=== PATIENT | female | born 1995 | race Caucasian/White ===

== ENCOUNTER 2017-01-05 11:23 | Emergency (ER) | payer BC ==
[2017-01-05 11:37] VITALS: BP 124/70; PULSE 83; RESP 20; TEMP 98.2
--- NOTE | 2017-01-05 12:24 | ED ---
Skin/Abscess/FB HPI - General Chief complaint: Skin/Abscess/Foreign Body Stated complaint: Vaginal Cyst Time Seen by Provider: 01/05/17 11:48 Source: patient Mode of arrival: ambulatory Limitations: no limitations - History of Present Illness Initial comments: 21-year-old female patient presents to emergency department today for evaluation of a abscess to her left labia. Patient states that the area started as what she believes was an ingrown hair about a week ago, and since has been progressively more painful and increasing in size since then. Patient does admit to shaving the area. Patient denies any fever, chills, dysuria, hematuria, urinary urgency, urinary frequency, abdominal pain, back pain, nausea , vomiting, constipation, or diarrhea. Patient denies history of abscess or MRSA. - Related Data Previous Rx's Medication Instructions Recorded Hydrocodone/Acetaminophen [[place] 1 tab PO Q6HR PRN #15 tab 01/05/17 5-325] Sulfamethox-Tmp 800-160Mg [Bactrim 1 each PO Q12HR #20 tab 01/05/17 Ds] Allergies Allergy/AdvReac Type Severity Reaction Status Date / Time No Known Allergies Allergy Verified 01/05/17 11:37 Review of Systems ROS Statement: Those systems with pertinent positive or pertinent negative responses have been documented in the HPI. ROS Other: All systems not noted in ROS Statement are negative. Past Medical History Past Medical History: No Reported History History of Any Multi-Drug Resistant Organisms: None Reported Additional Past Surgical History / Comment(s): wisdom teeth Past Psychological History: No Psychological Hx Reported Smoking Status: Never smoker Past Alcohol Use History: Occasional Past Drug Use History: None Reported General Exam Limitations: no limitations General appearance: alert, in no apparent distress Eye exam: Present: normal appearance, PERRL, EOMI. Absent: scleral icterus, conjunctival injection, periorbital swelling ENT exam: Present: normal exam, normal oropharynx, mucous membranes moist Neck exam: Present: normal inspection. Absent: tenderness, meningismus, lymphadenopathy Respiratory exam: Present: normal lung sounds bilaterally. Absent: respiratory distress, wheezes, rales, rhonchi, stridor Cardiovascular Exam: Present: regular rate, normal rhythm, normal heart sounds. Absent: systolic murmur, diastolic murmur, rubs, gallop, clicks GI/Abdominal exam: Present: soft, normal bowel sounds. Absent: distended, tenderness, guarding, rebound, rigid External exam: Present: erythema (Left labia), swelling, other ( 2 cm x 2 cm abscess noted to the labia, area is fluctuant). Absent: lacerations, ecchymosis Course Vital Signs 01/05/17 11:35 Temperature 98.2 F Pulse Rate 83 Respiratory 20 Rate Blood Pressure 124/70 O2 Sat by Pulse 99 Oximetry Procedures - Incision & Drainage Consent Obtained: verbal consent Time Out Performed?: Yes Site: vulva/vagina Size (cm): 2 Anesthetic Used: lidocaine 1% Amount (mLs): 4 I&D Cleaning Method: Betadine Sterile Field Used?: Yes Scalpel Used: #11 I&D Drainage Obtained: Pus, Blood Culture Obtained?: Yes Patient Tolerated Procedure: well, no complications Medical Decision Making - Medical Decision Making 21-year-old female patient presented for evaluation and treatment of abscess to her left labia. I&D was performed in emergency department of the abscess, patient did have output of purulent drainage. Culture was obtained and sent to lab. She'll be discharged home and pain medication as well as started on Bactrim due to surrounding erythema. Patient educated regarding warm compresses and sitz baths for this. Patient injected a pop with primary care physician for recheck in one to 2 days. Patient instructed to return for any new, worsening, or concerning symptoms. Disposition Clinical Impression: Labial abscess Disposition: HOME SELF-CARE Condition: Stable Instructions: Abscess Incision and Drainage (ED) Additional Instructions: Warm compresses, sitz baths at least 4 times a day for 20 minutes at a time. Take pain medication as needed for discomfort. Follow up with primary Physician in one to 2 days for recheck. Return for any worsening, new, or concerning symptoms. Prescriptions: Hydrocodone/Acetaminophen [[place] 5-325] 1 tab PO Q6HR PRN #15 tab PRN Reason: Pain Sulfamethox-Tmp 800-160Mg [Bactrim Ds] 1 each PO Q12HR #20 tab Referrals: Radha Lacy MD [Primary Care Provider] - 1-2 days Time of Disposition: 12:24
== END 2017-01-05 12:53 | disposition home or self-care (01) ==
LOC: EC 11:23
DX: N76.4 Abscess of vulva (principal)
CPT/HCPCS: 56405; 87070; 87205; 99283

== ENCOUNTER 2019-10-24 02:37 | Emergency (ER) | payer BC, OTHER ==
[2019-10-24] MEDS ORDERED: ACETAMINOPHEN TAB 325 MG TAB PO STA (03:11)
--- NOTE | 2019-10-24 03:17 | XR ---
EXAMINATION TYPE: XR chest 2V DATE OF EXAM: 10/24/2019 COMPARISON: NONE HISTORY: Cough TECHNIQUE: FINDINGS: Heart and mediastinum are normal. Lungs are clear. Diaphragm is normal. Bony thorax appears normal. IMPRESSION: Normal chest
[2019-10-24] MEDS ORDERED: IBUPROFEN 600 MG TAB PO STA (03:22)
[2019-10-24] MEDS ORDERED: OSELTAMIVIR 75 MG CAP PO STA (03:37)
[2019-10-24 03:39] VITALS: BP 105/71; RESP 18
--- NOTE | 2019-10-24 03:44 | ED ---
General Adult HPI - General Chief complaint: ENT Stated complaint: fever,sore throat Time Seen by Provider: 10/24/19 02:59 Source: patient, RN notes reviewed, old records reviewed Mode of arrival: ambulatory Limitations: no limitations - History of Present Illness Initial comments: 24-year-old female patient no pertinent past medical history presents to ED for chief complaint of 2 days of fever, body aches, nausea without emesis, otalgia, sore throat, cough. Denies any chance of being . Denies sick contacts. Denies any abdominal pain. Denies any difficulty breathing. Denies any other complaints. Systemic: Pt denies fatigue, rash. Pt denies weakness, night sweats, weight loss. Neuro: Pt denies headache, visual disturbances, syncope or pre-syncope. HEENT: Pt denies ocular discharge or irritation, otalgia, rhinorrhea, pharyngitis or notable lymphadenopathy. Cardiopulmonary: Pt denies chest pain, SOB, heart palpitations, dyspnea on exertion. Abdominal/GI: Pt denies abdominal pain, n/v/d. : Pt denies dysuria, burning w/ urination, frequency/urgency. Denies new onset urinary or bowel incontinence. MSK: Pt denies loss of strength or function in extremities. Neuro: Pt denies new onset weakness, paresthesias. - Related Data Previous Rx's Medication Instructions Recorded Hydrocodone/Acetaminophen [[place] 1 tab PO Q6HR PRN #15 tab 01/05/17 5-325] Sulfamethox-Tmp 800-160Mg [Bactrim 1 each PO Q12HR #20 tab 01/05/17 Ds] Oseltamivir [Tamiflu] 75 mg PO Q12HR 5 Days cap 10/24/19 Allergies Allergy/AdvReac Type Severity Reaction Status Date / Time No Known Allergies Allergy Verified 01/05/17 11:37 Review of Systems ROS Statement: Those systems with pertinent positive or pertinent negative responses have been documented in the HPI. ROS Other: All systems not noted in ROS Statement are negative. Past Medical History Past Medical History: No Reported History History of Any Multi-Drug Resistant Organisms: None Reported Additional Past Surgical History / Comment(s): wisdom teeth Past Psychological History: No Psychological Hx Reported Smoking Status: Never smoker Past Alcohol Use History: Occasional Past Drug Use History: None Reported General Exam - General Exam Comments Initial Comments: Constitutional: NAD, AOX3, Pt has pleasant affect. HEENT: NC/AT, trachea midline, neck supple, no lymphadenopathy. Posterior pharynx non erythematous, without exudates. External ears appear normal, without discharge. TMs pale cordero bilaterally. Mucous membranes moist. Eyes PERRLA, EOM intact. There is no scleral icterus. No pallor noted. Cardiopulmonary: RRR, no murmurs, rubs or gallops, no JVD noted. Lungs CTAB in anterior and posterior browne. No peripheral edema. Abdominal exam: Abdomen soft and non-distended. Abdomen non-tender to palpation in all 4 quadrants. Bowel sounds active in LLQ. No hepatosplenomegaly. No ecchymosis Neuro: CN II-XII grossly intact. No nuchal rigidity. No raccon eyes, no mar sign, no hemotympanum. No cervical spinal tenderness. Kernig's and Brudzinski's negative. MSK: No posterior calf tenderness bilaterally, homans sign negative bilaterally. Posterior tibialis and radial pulse +2 bilaterally. Sensation intact in upper and lower extremities. Full active ROM in upper and lower extremities, 5/5 stregnth. Limitations: no limitations Course Vital Signs 10/24/19 10/24/19 02:49 03:38 Temperature 101 F H 101.9 F H Pulse Rate 130 H 119 H Respiratory 16 18 Rate Blood Pressure 141/82 105/71 O2 Sat by Pulse 97 97 Oximetry Medical Decision Making - Medical Decision Making 24-year-old female patient no pertinent past medical history presents to ED for chief complaint of 2 days of fever, body aches, nausea without emesis, otalgia, sore throat, cough. Denies any chance of being . Denies sick contacts. Denies any abdominal pain. Denies any difficulty breathing. Denies any other complaints. Pt vital signs displayed fever, patient administered antipyretic. Physical exam did not display acute pathology. Laboratory investigations revealed positive influenza B. Patient initiated on Tamiflu. We'll discharge the primary care provider follow-up tomorrow and return precautions. Case discussed with Dr. Tlelo. - Lab Data Lab Results 10/24/19 10/24/19 Range/Units 03:00 03:00 Influenza Type A RNA Not Detected (Not Detectd) Influenza Type B (PCR) Detected H (Not Detectd) Group A Strep Rapid Negative (Negative) Disposition Clinical Impression: Influenza B Disposition: HOME SELF-CARE Condition: Stable Instructions (If sedation given, give patient instructions): Influenza (ED) Additional Instructions: Take medication as directed. Use Tylenol and Motrin as needed for fever. Follow up with primary care provider tomorrow. Return to ER if condition worsens. Prescriptions: Oseltamivir [Tamiflu] 75 mg PO Q12HR 5 Days cap Is patient prescribed a controlled substance at d/c from ED?: No Referrals: Radha Lacy MD [Primary Care Provider] - 1-2 days
[2019-10-24 03:59] VITALS: PULSE 110; TEMP 99.5
== END 2019-10-24 03:59 | disposition home or self-care (01) ==
LOC: EC 02:37
DX: J10.1 Influenza due to other identified influenza virus with other respiratory manifestations (principal)
CPT/HCPCS: 71046; 87081; 87430; 87502; 99284

== ENCOUNTER 2020-08-11 22:13 | Emergency (ER) | payer OTHER ==
[2020-08-11 22:22] VITALS: RESP 18
--- NOTE | 2020-08-11 22:45 | ED ---
Female Urogenital HPI - General Chief complaint: Vaginal Bleeding Stated complaint: abnormal bleeding Time Seen by Provider: 08/11/20 22:22 Source: patient Mode of arrival: ambulatory Limitations: no limitations - History of Present Illness Initial comments: 25 year-old female patient presents to the emergency department today for evaluation of vaginal bleeding. Patient states that she has had increased vaginal bleeding over the last 2 days. States her normal period was 07/27/2020. States that she generally has very regular periods and never has had bleeding between. She is not taking nor has she started and stopped a control. States that her last period seemed to be of normal heaviness and duration. Patient states that she has not had to wear a pad or tampon, but did bleed through her underwear at one point. She states she is having mild abdominal cramping. Denies any back pain. Does admit to having unprotected sex. Is concerned about STIs but denies any abnormal vaginal discharge, odor, or itching. Denies any dysuria, hematuria, urinary urgency, urinary frequency. She did see her physician for this yesterday was given Bactrim for possible urinary tract infection with no other testing. Patient denies any recent rash, fever, chills, cough, shortness of breath, chest pain, nausea, vomiting, diarrhea, constipation, back pain, numbness, tingling, dizziness, weakness, headache, visual changes, or any other complaints. - Related Data Previous Rx's Medication Instructions Recorded Hydrocodone/Acetaminophen [[place] 1 tab PO Q6HR PRN #15 tab 01/05/17 5-325] Sulfamethox-Tmp 800-160Mg [Bactrim 1 each PO Q12HR #20 tab 01/05/17 Ds] Oseltamivir [Tamiflu] 75 mg PO Q12HR 5 Days cap 10/24/19 Allergies Allergy/AdvReac Type Severity Reaction Status Date / Time No Known Allergies Allergy Verified 08/11/20 22:21 Review of Systems ROS Statement: Those systems with pertinent positive or pertinent negative responses have been documented in the HPI. ROS Other: All systems not noted in ROS Statement are negative. Past Medical History Past Medical History: No Reported History History of Any Multi-Drug Resistant Organisms: None Reported Additional Past Surgical History / Comment(s): wisdom teeth Past Psychological History: No Psychological Hx Reported Smoking Status: Never smoker Past Alcohol Use History: Occasional Past Drug Use History: None Reported General Exam Limitations: no limitations General appearance: alert, in no apparent distress, other (This is a well- developed, well-nourished adult female patient in no acute distress. Vital signs upon presentation are temperature 98.0F, pulse 103, respirations 18, blood pressure 115/74, pulse ox 99% on room air.) Eye exam: Present: normal appearance, PERRL, EOMI. Absent: scleral icterus, conjunctival injection, periorbital swelling ENT exam: Present: normal exam, normal oropharynx, mucous membranes moist Respiratory exam: Present: normal lung sounds bilaterally. Absent: respiratory distress, wheezes, rales, rhonchi, stridor Cardiovascular Exam: Present: regular rate, normal rhythm, normal heart sounds. Absent: systolic murmur, diastolic murmur, rubs, gallop, clicks GI/Abdominal exam: Present: soft, normal bowel sounds. Absent: distended, tenderness, guarding, rebound, rigid External exam: Present: normal external exam Speculum exam: Present: vaginal bleeding (Scant). Absent: cervical discharge By manual exam: Present: normal by manual exam, adnexal tenderness (Mild left). Absent: cervical motion tenderness Neurological exam: Present: alert, oriented X3, CN II-XII intact Psychiatric exam: Present: normal affect, normal mood Skin exam: Present: warm, dry, intact, normal color. Absent: rash Course Vital Signs 08/11/20 22:18 Temperature 98 F Pulse Rate 103 H Respiratory 18 Rate Blood Pressure 115/74 O2 Sat by Pulse 99 Oximetry Medical Decision Making - Medical Decision Making 25-year-old female patient presented to the emergency department today for evaluation of vaginal bleeding that started 2 days ago. Patient's normal period was 2 weeks ago. Physical examination revealed a soft nontender abdomen. Patient denies having significant pain with this. Vaginal exam was obtained and showed very scant vaginal bleeding. No cervical erythema or friability. No abnormal lesions. Bimanual exam was normal with some very mild left adnexal tenderness. HCG was negative. Patient did request STD testing. Swabs were sent to the lab. We will discharge at this time to await culture results. She is instructed to follow-up with her primary care physician for recheck in 1-2 days. Return parameters were discussed in detail. She verbalizes understanding and agrees with this plan. - Lab Data Lab Results 08/11/20 Range/Units 22:54 Urine HCG, Qual Not Detected (Not Detectd) Disposition Clinical Impression: Dysfunctional uterine bleeding Disposition: HOME SELF-CARE Condition: Good Instructions (If sedation given, give patient instructions): Dysfunctional Uterine Bleeding (ED) Additional Instructions: Await culture results. Follow up with women's studies lecturer for further evaluation as soon as possible. Return to the emergency department for any new, worsening, or concerning symptoms. Is patient prescribed a controlled substance at d/c from ED?: No Referrals: Concepción Khoury DO [Doctor of Osteopathic Medicine] - 1-2 days Time of Disposition: 23:24
[2020-08-11 23:35] VITALS: BP 104/64; PULSE 77; TEMP 98.6
== END 2020-08-11 23:37 | disposition home or self-care (01) ==
LOC: EC 22:13
DX: N93.8 Other specified abnormal uterine and vaginal bleeding (principal); R10.9 Unspecified abdominal pain; Z32.02 Encounter for pregnancy test, result negative
CPT/HCPCS: 81025; 87070; 87491; 87591; 87808; 99284